=== PATIENT | male | born 1955 | race Caucasian/White ===

== ENCOUNTER 2016-06-08 19:21 | Observation (INO) | payer SELFPAY ==
[2016-06-08 19:29] VITALS: BMI 42.2
[2016-06-08] MEDS ORDERED: ASPIRIN 81 MG CHEWABLE TABLETS PO ONE (19:47)
--- NOTE | 2016-06-08 19:47 | PDOC ---
[id number] - General Chief Complaint: Syncope/Near Syncope Stated Complaint: SYNCOPE - History of Present Illness Initial Comments: 06/08/16 21:09 Patient is a 61 year old male with significant medical hx of COPD and HTN has been brought to the ED via EMS after a syncopal episode earlier this evening. The patient states he finished eating and had a sip of soda prior to losing consciousness. He reports that the next thing he knew, he was being woken up. Patient denies chest pain, headache, shortness of breath, or dizziness prior to losing consciousness. Social Hx: Pack a day smoker for 50 years. Denies alcohol use. Surgical Hx: Left forearm fx with plates Allergies: NKDA (Holden,Tiffanie) Past History <Tiffanie Hatch - Last Filed: 06/08/16 21:09> - Past Medical History COPD: Yes HTN: Yes (dx ) - Psycho/Social/Smoking Cessation Hx Suicidal Ideation: No Smoking History: Unknown if ever smoked <Jacinda Del Real - Last Filed: 06/09/16 00:26> - Past Medical History Allergies/Adverse Reactions: Allergies Allergy/AdvReac Type Severity Reaction Status Date / Time No Known Allergies Allergy Verified 06/08/16 19:25 Home Medications: Ambulatory Orders Nebivolol HCl [Bystolic] 10 mg PO DAILY 06/08/16 Review of Systems <Tiffanie Hatch - Last Filed: 06/08/16 21:09> <Jacinda Del Real - Last Filed: 06/09/16 00:26> - Review of Systems Comments:: 06/08/16 21:09 CONSTITUTIONAL: Absent: fever, chills, diaphoresis, generalized weakness, malaise, loss of appetite HEENT: Absent: rhinorrhea, nasal congestion, throat pain, throat swelling, difficulty swallowing, mouth swelling, ear pain, eye pain, visual changes CARDIOVASCULAR: Present: syncope Absent: chest pain, palpitations, irregular heart rate, lightheadedness, peripheral edema RESPIRATORY: Absent: cough, shortness of breath, dyspnea with exertion, orthopnea, wheezing, stridor, hemoptysis GASTROINTESTINAL: Absent: abdominal pain, abdominal distension, nausea, vomiting, diarrhea, constipation, melena, hematochezia GENITOURINARY: Absent: dysuria, frequency, urgency, hesitancy, hematuria, flank pain, genital pain MUSCULOSKELETAL: Absent: myalgia, arthralgia, joint swelling SKIN: Absent: rash, itching, pallor HEMATOLOGIC/IMMUNOLOGIC: Absent: easy bleeding, easy bruising, lymphadenopathy, frequent infections ENDOCRINE: Absent: unexplained weight gain, unexplained weight loss, heat intolerance, cold intolerance NEUROLOGIC: Absent: headache, focal weakness or paresthesia, dizziness, unsteady gait, seizure, mental status changes, bladder or bowel incontinence. PSYCHIATRIC: Absent: anxiety, depression, suicidal or homicidal ideation, hallucinations (Tiffanie Hatch) *Physical Exam <Tiffanie Hatch - Last Filed: 06/08/16 21:09> <Jacinda Del Real - Last Filed: 06/09/16 00:26> - Vital Signs Last Vital Signs Temp Pulse Resp BP Pulse Ox 98.5 F 64 20 178/69 93 L 06/08/16 22:37 06/08/16 22:37 06/08/16 22:37 06/08/16 22:37 06/08/16 22:37 - Physical Exam Comments: 06/08/16 21:09 GENERAL: Morbidly Obese. Awake and alert. No acute distress. HEENT: Normocephalic, atraumatic. PERRLA, EOMI. No conjunctival pallor. Sclera are non- icteric. Moist mucous membranes. Oropharynx is clear. NECK: Supple. Full ROM. No JVD. Carotid pulses 2+ and symmetric, without bruits. No thyromegaly. No lymphadenopathy. CARDIOVASCULAR: Irregular heart rate. No murmurs, rubs, or gallops. Distal pulses are 2+ and symmetric. PULMONARY: No evidence of respiratory distress. Lungs clear to auscultation bilaterally. No wheezing, rales or rhonchi. ABDOMINAL: Protuberant. Soft. Non-tender. Non-distended. No rebound or guarding. No organomegaly. Normoactive bowel sounds. MUSCULOSKELETAL: Normal range of motion at all joints. No bony deformities or tenderness. No CVA tenderness. EXTREMITIES: No cyanosis. No clubbing. No edema. No calf tenderness. SKIN: Warm and dry. Normal capillary refill. No rashes. No jaundice. NEUROLOGICAL: Alert, awake, appropriate. Cranial nerves 2-12 intact. Normal speech. PSYCHIATRIC: Cooperative. Good eye contact. Appropriate mood and affect. (Tiffanie Hatch) Heart Score/ECG Review <Tiffanie Hatch - Last Filed: 06/08/16 21:09> - History History: Slightly suspicious - Electrocardiogram EKG: Non specific repolarization disturbance - Age Age: 45-65 - Risk Factors Risk Factors Heart Score: Yes Hx Hypertension, Yes Smoking History, Yes Hx Obesity Based on the list above the patient has:: >/=3 risk factors or Hx atherosclerotic disease - Troponin Troponin: </= normal limit - Score Heart Score - Total: 4 #1 Compared to previous ECG there are: Previous ECG unavail - P and DE Prolonged DE Interval: 2nd Degree Block Type I (2rd degree AV block (mobitz I)) Delta Wave(s) Present: No WPW: No - ECG Impressions Heart Block: 2nd Degree Block Type I <Jacinda Del Real - Last Filed: 06/09/16 00:26> #1 06/08/16 21:11 Sinus rhythm with 2nd degree AV block (Mobitz I) at 56 bpm Abnormal ECG (Tiffanie Hatch) ED Treatment Course - LABORATORY CBC & Chemistry Diagram: 06/08/16 19:56 06/08/16 19:56 <HoldenLeonelTiffanie - Last Filed: 06/08/16 21:09> - LABORATORY CBC & Chemistry Diagram: 06/08/16 19:56 06/08/16 19:56 <Jacinda Del Real - Last Filed: 06/09/16 00:26> - ADDITIONAL ORDERS Additional order review: Laboratory Results 06/08/16 06/08/16 06/08/16 20:00 19:56 19:56 INR D-Dimer Sodium 140 Potassium 4.1 Chloride 103 Carbon Dioxide 29 Anion Gap 8 BUN 15 Creatinine 1.1 Creat Clearance w eGFR > 60 Random Glucose 93 Calcium 8.7 Magnesium 2.0 Total Bilirubin 0.5 AST 22 ALT 30 Alkaline Phosphatase 82 Creatine Kinase 161 Creatine Kinase Index 1.4 CK-MB (CK-2) 2.307 CK-MB (CK-2) Rel Index Cancelled Troponin I < 0.02 B-Natriuretic Peptide 654.87 H Total Protein 7.6 Albumin 3.8 Urine Color Yellow Urine Appearance Clear Urine pH 6.0 Ur Specific [place] 1.021 Urine Protein 1+ H Urine Glucose (UA) Negative Urine Ketones Negative Urine Blood Negative Urine Nitrite Negative Urine Bilirubin Negative Urine Urobilinogen 4.0 e.u/dl Ur Leukocyte Esterase Negative Urine RBC 2 Urine WBC <1 Urine Mucus Rare 06/08/16 19:56 INR 1.04 D-Dimer < 200 Sodium Potassium Chloride Carbon Dioxide Anion Gap BUN Creatinine Creat Clearance w eGFR Random Glucose Calcium Magnesium Total Bilirubin AST ALT Alkaline Phosphatase Creatine Kinase Creatine Kinase Index CK-MB (CK-2) CK-MB (CK-2) Rel Index Troponin I B-Natriuretic Peptide Total Protein Albumin Urine Color Urine Appearance Urine pH Ur Specific [place] Urine Protein Urine Glucose (UA) Urine Ketones Urine Blood Urine Nitrite Urine Bilirubin Urine Urobilinogen Ur Leukocyte Esterase Urine RBC Urine WBC Urine Mucus 06/08/16 19:56 RBC 5.61 H MCV 88.1 MCHC 33.3 RDW 14.2 MPV 10.6 Neutrophils % 52.6 Lymphocytes % 36.3 Monocytes % 8.7 Eosinophils % 1.8 Basophils % 0.6 - RADIOLOGY Radiology Studies Ordered: Category Date Time Status HEAD CT WITHOUT CONTRAST [CT] Stat CT Scan 06/08/16 20:03 Taken CHEST PA & LAT [RAD] Stat Radiology 06/08/16 19:48 Taken Radiograph Interpretation: 06/08/16 21:11 Economic Research Analyst: ([email or web address]) Report Date: 06/08/2016 20:34:00 Report Status: Preliminary Begin of Report Content Referring Physician: Jacinda Del Real Patient Name: Marco Combs THIS IS A PRELIMINARY REPORT FROM IMAGING MANAGER APPLICATION DEVELOPMENT. EXAM: HEAD CT WITHOUT CONTRAST DATE OF SERVICE: 2016-06-08 20:34:58.0 IMAGES: 74 INDICATION: Syncope. COMPARISON: None FINDINGS: No evidence of acute intracranial abnormality demonstrated. Mild diffuse cerebral volume loss. There is no CT evidence of acute cortical territorial infarction, bleed, mass lesion, mass effect, hydrocephalus or abnormal extraaxial collection. No acute sinusitis or mastoiditis is identified. No acute skull fracture or calvarial lesion is noted. THIS DOCUMENT HAS BEEN ELECTRONICALLY SIGNED Sherie Garcia MD 06/08/2016 21:01 MARY Mcintyre Please call Imaging Medicine And Health Service Manager [phone] with questions. End of Report Content (Tiffanie Hatch) - Medications Given in the ED: ED Medications Discontinued Medications Generic Name Dose Route Start Last Admin Trade Name Alex PRN Reason Stop Dose Admin Aspirin 162 mg 06/08/16 19:47 06/08/16 19:54 Asa - PO 06/08/16 19:48 162 mg ONCE ONE Administration Medical Decision Making <Tiffanie Hatch - Last Filed: 06/08/16 21:09> <Jacinda Del Real - Last Filed: 06/09/16 00:26> - Medical Decision Making 06/08/16 21:47 obese 61 yo male had a witnessed syncopal episode today and was BIBA ekg shows 2rd degree AV block(mobitz I). pt was just started on bystolic last by his doctor Dr Humphreys -no gross focal neuro deficits, ct head no acute intracranial pathology risk factors >50 pack year tobacco use/obesity/HTN first cardiac enzyme is negative pt denies any symptoms-states he has NO cp,dyspnea,nausea,vomiting,dizziness -spoke w furnace stock inspector Dr Sims and pt admitted to telemetry 06/09/16 00:20 06/09/16 00:25 (Jacinda Del Real) *DC/Admit/Observation/Transfer <Tiffanie Hatch - Last Filed: 06/08/16 21:09> - Discharge Dispostion Admit: Yes <Jacinda Del Real - Last Filed: 06/09/16 00:26> Diagnosis at time of Disposition: Second degree AV block Syncope Qualifiers: Syncope type: unspecified Qualified Code(s): R55 - Syncope and collapse - Attestations Scribe Attestion: 06/08/16 21:13 Documentation prepared by Tiffanie Hatch, acting as biomedical engineering internship for Jacinda Del Real MD. (Tiffanie Hatch)
[2016-06-08] MEDS ORDERED: ASPIRIN 81 MG CHEWABLE TABLETS ONE (19:56)
[2016-06-08 20:03] LABS: BASOPHIL 0.6 % (0-2.0); EOSINOPHIL 1.8 % (0-4.5); MCH 29.3 pg (25.7-33.7); MCHC 33.3 g/dl (32.0-35.9); MEAN CELL VOLUME 88.1 fl (80-96); MEAN PLT VOLUME 10.6 fl (7.5-11.1); NEUTROPHILS 52.6 % (42.8-82.8); PLATELET COUNT 196 K/MM3 (134-434); RDW 14.2 % (11.9-15.9)
[2016-06-08 20:09] LABS: URINE APPEARANCE CLEAR; URINE BILIRUBIN NEGATIVE (NEGATIVE); URINE BLOOD NEGATIVE (NEGATIVE); URINE COLOR YELLOW; URINE GLUCOSE (UA) NEGATIVE (NEGATIVE); URINE KETONE NEGATIVE (NEGATIVE); URINE LEUK ESTERASE NEGATIVE (NEGATIVE); URINE NITRITE NEGATIVE (NEGATIVE); URINE UROBILINOGEN 4.0 E.U/dl E.U./dl (0.2-1.0)
[2016-06-08 20:12] LABS: URINE PROTEIN 1+ (NEGATIVE)
[2016-06-08 20:13] LABS: URINE MUCUS RARE; URINE RBC 2 /hpf (0-3); URINE WBC <1 /hpf (3-5)
[2016-06-08 20:24] LABS: ALBUMIN 3.8 g/dl (3.4-5.0); ANION GAP 8 (8-16); BILIRUBIN,TOTAL 0.5 mg/dL (0.2-1.0); CALCIUM 8.7 mg/dL (8.5-10.1); CO2 29 mmol/L (21-32); CREATININE 1.1 mg/dL (0.7-1.3); GLUCOSE,RANDOM 93 mg/dL (74-106); SGOT/AST 22 U/L (15-37); SGPT/ALT 30 U/L (12-78); TOT PROT 7.6 g/dl (6.4-8.2)
[2016-06-08 20:26] LABS: ALK PHOS 82 U/L (45-117); TROPONIN I < 0.02 ng/ml (0.00-0.05)
[2016-06-08 21:00] LABS: INR 1.04 (0.82-1.09)
[2016-06-08 21:02] LABS: D-DIMER < 200 ng/ml (<200-235)
--- NOTE | 2016-06-08 22:00 | PN ---
<Jennifer Parry - Last Filed: 06/08/16 22:00> Teaching Attending Note Name of Resident: Josiah Schwab ATTENDING PHYSICIAN STATEMENT I saw and evaluated the patient. I reviewed the resident's note and discussed the case with the resident. I agree with the resident's findings and plan as documented. SUBJECTIVE: OBJECTIVE: ASSESSMENT AND PLAN: <Taty Vickers - Last Filed: 06/09/16 01:31> Teaching Attending Note ATTENDING PHYSICIAN STATEMENT I saw and evaluated the patient. I reviewed the resident's note and discussed the case with the resident. I agree with the resident's findings and plan as documented. SUBJECTIVE: Patient is a 61 yo M with a PMHx of COPD and HTN who presented with LOC earlier in the evening. Patients daughter states he had just finished dinner and sat on the couch and got rigid and fell back onto the couch for 20 seconds. Patient denies loss of bowel or bladder function. Patient notes he has had dizzy spells in the past. Patients states that patient has been stressed and has been eating less recently. Patient was recently diagnosed with HTN and started bystolic 3 days ago. Social Hx: Smoker (50 years) OBJECTIVE: Last Vital Signs Temp Pulse Resp BP Pulse Ox 98.5 F 64 20 178/69 93 L 06/08/16 22:37 06/08/16 22:37 06/08/16 22:37 06/08/16 22:37 06/08/16 22:37 GENERAL: Awake, alert, and fully oriented, in no acute distress. Morbidly obese. HEENT: Atraumatic. PERRLA, EOMI. Moist mucosa. No JVD LUNGS: No distress, speaks full sentences, clear to auscultation bilaterally HEART: Regular rate and rhythm, normal S1 and S2, no murmurs, rubs or gallops, peripheral pulses normal and equal bilaterally. ABDOMEN: Soft, nontender, normoactive bowel sounds. No guarding, no rebound. No masses EXTREMITIES: Normal inspection, Normal range of motion, +1 pitting edema in bilateral LE. No clubbing or cyanosis. NEUROLOGICAL: Cranial nerves II through XII grossly intact. Normal speech, normal gait, no focal sensorimotor deficits SKIN: Warm, Dry, normal turgor, no rashes or lesions noted. CBCD WBC 12.0 K/mm3 (4.0-10.0) H 06/08/16 19:56 RBC 5.61 M/mm3 (4.00-5.60) H 06/08/16 19:56 Hgb 16.4 GM/dL (11.7-16.9) 06/08/16 19:56 Hct 49.4 % (35.4-49) H 06/08/16 19:56 MCV 88.1 fl (80-96) 06/08/16 19:56 MCHC 33.3 g/dl (32.0-35.9) 06/08/16 19:56 RDW 14.2 % (11.9-15.9) 06/08/16 19:56 Plt Count 196 K/MM3 (134-434) 06/08/16 19:56 MPV 10.6 fl (7.5-11.1) 06/08/16 19:56 CMP Sodium 140 mmol/L (136-145) 06/08/16 19:56 Potassium 4.1 mmol/L (3.5-5.1) 06/08/16 19:56 Chloride 103 mmol/L (98-107) 06/08/16 19:56 Carbon Dioxide 29 mmol/L (21-32) 06/08/16 19:56 Anion Gap 8 (8-16) 06/08/16 19:56 BUN 15 mg/dL (7-18) 06/08/16 19:56 Creatinine 1.1 mg/dL (0.7-1.3) 06/08/16 19:56 Creat Clearance w eGFR > 60 (>60) 06/08/16 19:56 Calcium 8.7 mg/dL (8.5-10.1) 06/08/16 19:56 Total Bilirubin 0.5 mg/dL (0.2-1.0) 06/08/16 19:56 AST 22 U/L (15-37) 06/08/16 19:56 ALT 30 U/L (12-78) 06/08/16 19:56 Alkaline Phosphatase 82 U/L (45-117) 06/08/16 19:56 Total Protein 7.6 g/dl (6.4-8.2) 06/08/16 19:56 Albumin 3.8 g/dl (3.4-5.0) 06/08/16 19:56 ECG: Consistent with mobitz 1 @ [address] head: Negative for any acute abnormality. Carotid Artery US: Left carotid plaque less than 70% Decreased left vertebral artery flow ASSESSMENT AND PLAN: Patient is a 61 yo M with a PMHx of COPD and HTN who presents with LOC. 1.) LOC -Differential diagnosis vasovagal/cardiogenic -Vertebrobasilar insufficiency -Consider MRA -Check lipid panel -Trend troponin/ECG -Orthostatic VS -Echo in AM -Carotid US -DC bystolic due to mobitz 1 -Cardiology consult 2.) HTN -Amlodipine 3.) COPD -Duonabs PRN -Continue Dulera DVT ppx -SCDs Admit to Obs/Tele Documentation prepared by Taty Vickers, acting as medical psychotherapist for Jennifer Parry D.O.
[2016-06-08] MEDS ORDERED: ALBUTEROL SO4 0.083% IH SOL 2.5 MG/3 ML VIAL.NEB. NEB PRN (22:47)
[2016-06-08] MEDS ORDERED: ACETAMINOPHEN 325 MG TABLET (FP) PO PRN (22:47)
--- NOTE | 2016-06-08 22:47 | HP ---
CHIEF COMPLAINT:Syncope PCP: HISTORY OF PRESENT ILLNESS: 61 yo M with significant PMHx of COPD and HTN has been brought to the ED via EMS after a syncopal episode earlier this evening. As per daughter who witnessed event she states that he was sitting on couch just after dinner when she witnessed him fall back in cough and lose consciousness for approx. 20 sec. Denies confusion, loss of bowel or bladder function upon regaining consciousness. ER course was notable for: (1)EKG- Sinus rhythm with 2nd degree AV block (Mobitz I) at 56 bpm (2)BNP elevated- 654 and CXR shows mild congestion; stat dose 20mg IV lasix (3)First set of troponin's negative. Recent Travel:Denies PAST MEDICAL HISTORY:COPD and HTN PAST SURGICAL HISTORY: Social History: Smokin pack year history Alcohol:no Drugs: no Family History: Allergies No Known Allergies Allergy (Verified 06/08/16 19:25) HOME MEDICATIONS: Home Medications Medication Instructions Recorded Nebivolol HCl [Bystolic] 10 mg PO DAILY 06/08/16 REVIEW OF SYSTEMS CONSTITUTIONAL: Absent: fever, chills, diaphoresis, generalized weakness, malaise, loss of appetite, weight change HEENT: Absent: rhinorrhea, nasal congestion, throat pain, throat swelling, difficulty swallowing, mouth swelling, ear pain, eye pain, visual changes CARDIOVASCULAR: Absent: chest pain, syncope, palpitations, irregular heart rate, lightheadedness , peripheral edema RESPIRATORY: Absent: cough, shortness of breath, dyspnea with exertion, orthopnea, wheezing, stridor, hemoptysis GASTROINTESTINAL: Absent: abdominal pain, abdominal distension, nausea, vomiting, diarrhea, constipation, melena, hematochezia GENITOURINARY: Absent: dysuria, frequency, urgency, hesitancy, hematuria, flank pain, genital pain MUSCULOSKELETAL: Absent: myalgia, arthralgia, joint swelling, back pain, neck pain SKIN: Absent: rash, itching, pallor HEMATOLOGIC/IMMUNOLOGIC: Absent: easy bleeding, easy bruising, lymphadenopathy, frequent infections ENDOCRINE: Absent: unexplained weight gain, unexplained weight loss, heat intolerance, cold intolerance NEUROLOGIC: Absent: headache, focal weakness or paresthesias, dizziness, unsteady gait, seizure, mental status changes, bladder or bowel incontinence PSYCHIATRIC: Absent: anxiety, depression, suicidal or homicidal ideation, hallucinations. PHYSICAL EXAMINATION Vital Signs - 24 hr 06/08/16 22:37 Temperature 98.5 F Pulse Rate [ 64 Apical] Respiratory 20 Rate Blood Pressure 178/69 [Right Arm] O2 Sat by Pulse 93 L Oximetry (%) GENERAL: Awake, alert, and fully oriented, in no acute distress. HEAD: Normal with no signs of trauma. EYES: Pupils equal, round and reactive to light, extraocular movements intact, sclera anicteric, conjunctiva clear. EARS, NOSE, THROAT: Ears normal, nares patent, oropharynx clear without exudates. Moist mucous membranes. NECK: Normal range of motion, supple without lymphadenopathy, JVD, or masses.No bruits LUNGS: Breath sounds equal, clear to auscultation bilaterally. No wheezes, and no crackles. No accessory muscle use. HEART: Regular rate and rhythm, normal S1 and S2 without murmur, rub or gallop. ABDOMEN: Soft, obese, nontender, not distended, normoactive bowel sounds, no guarding, no rebound, no masses. No hepatomegaly or splenomegaly. MUSCULOSKELETAL: Normal range of motion at all joints. No bony deformities or tenderness. No CVA tenderness. UPPER EXTREMITIES: 2+ pulses, warm, well-perfused. No cyanosis. No clubbing.. No peripheral edema. LOWER EXTREMITIES: 2+ pulses, warm, well-perfused. No calf tenderness. No peripheral edema. NEUROLOGICAL: Cranial nerves II-XII intact. Normal speech. gait not observed. PSYCHIATRIC: Cooperative. Good eye contact. Appropriate mood and affect. SKIN: Warm, dry, normal turgor, LE stasis dermatitis. ASSESSMENT/PLAN: 61 yo M with significant PMHx of COPD and HTN placed on tele/observation for syncopal work up. Problem List - Problem (1) Syncope Assessment/Plan: * Telemetry * Echo pending * Carotid dopplers * Cardio consult * (2) Second degree AV block Assessment/Plan: * Bystolic held * repeat EKG * tele * Cardio consult. * daughter states she can fax old EKG in AM to compare. (3) HTN (hypertension) Assessment/Plan: * Bystolic held because of 2 degree block on EKG * Started on HCTZ 12.5mg PO daily (4) COPD (chronic obstructive pulmonary disease) Assessment/Plan: * Supplemental O2 via 2L NC * maintain SpO2 >90% * Duonebs TID * Albuterol Q4PRN (5) DVT prophylaxis Assessment/Plan: * Heparin 5000 units TID Visit type - Emergency Visit Emergency Visit: Yes ED Registration Date: 06/08/16 Care time: The patient presented to the Emergency Department on the above date and was hospitalized for further evaluation of their emergent condition. - New Patient This patient is new to me today: Yes Date on this admission: 06/08/16 - Critical Care Critical Care patient: No
[2016-06-08] MEDS ORDERED: FUROSEMIDE 40 MG/4 ML INJECTABLE VIAL IVPB ONE (22:55)
[2016-06-09] MEDS: HEPARIN NA (PORCINE) 5,000 UNITS/ML 1ML VIAL SQ SCH ×4 (00:20→21:18)
[2016-06-09] MEDS: ALBUTEROL SO4 2.5/IPRATROPIUM 0.5 INH SOL 3 ML VIAL.NEB. NEB SCH ×3 (06:30→22:15)
[2016-06-09 07:38] LABS: BASOPHIL 0.7 % (0-2.0); EOSINOPHIL 2.1 % (0-4.5); MCH 29.3 pg (25.7-33.7); MEAN CELL VOLUME 88.5 fl (80-96); MEAN PLT VOLUME 10.4 fl (7.5-11.1); NEUTROPHILS 60.1 % (42.8-82.8); PLATELET COUNT 156 K/MM3 (134-434); RDW 14.2 % (11.9-15.9); WHITE BLOOD COUNT 9.6 K/mm3 (4.0-10.0)
[2016-06-09 07:44] LABS: ALBUMIN 3.5 g/dl (3.4-5.0); ANION GAP 10 (8-16); CALCIUM 8.5 mg/dL (8.5-10.1); CO2 27 mmol/L (21-32); GLUCOSE,RANDOM 100 mg/dL (74-106); MAGNESIUM 2.1 mg/dL (1.8-2.4); PHOSPHOROUS 3.1 mg/dL (2.5-4.9); SGOT/AST 18 U/L (15-37); SGPT/ALT 27 U/L (12-78)
[2016-06-09 07:45] LABS: ALK PHOS 72 U/L (45-117); BILIRUBIN,TOTAL 0.7 mg/dL (0.2-1.0); TOT PROT 6.9 g/dl (6.4-8.2)
[2016-06-09 08:41] LABS: CHOLESTEROL 194 mg/dL (50-200); LDL CHOLESTEROL (ONLY SJRH) 144 mg/dL (5-100)
[2016-06-09 08:43] LABS: TROPONIN I 0.02 ng/ml (0.00-0.05)
[2016-06-09] MEDS ORDERED: HYDROCHLOROTHIAZIDE 12.5 MG CAPSULE (FP) PO SCH (10:00)
[2016-06-09] MEDS ORDERED: INFLUENZA VACCINE 45 MCG/0.5 ML (MDV 16-17) IM ONE (10:00)
--- NOTE | 2016-06-09 11:44 | PN ---
Addendum entered and electronically signed by Ozzy Loja RES 06/09/16 16:51 : Will stop HCTZ and start pt on norvasc 5 mg po qd for HTN. Original Note: Physical Exam: SUBJECTIVE: Patient seen and examined at bedside. Pt offers no complaints today. Feels well and denies any CP, palpitations, light headedness, dizziness, SOB, or feeling faint. Pt states he was recently diagnosed with HTN and was started on bystolic 3 days ago. OBJECTIVE: Vital Signs Temperature 98.2 F 06/09/16 09:00 Pulse Rate 54 L 06/09/16 09:00 Respiratory Rate 16 06/09/16 09:00 Blood Pressure 148/70 06/09/16 09:00 O2 Sat by Pulse Oximetry (%) 94 L 06/09/16 11:00 GENERAL: The patient is awake, alert, and fully oriented, in no acute distress. HEAD: Normal with no signs of trauma. EYES: PERRL, extraocular movements intact, sclera anicteric, conjunctiva clear. No ptosis. ENT: Ears normal, nares patent, moist mucous membranes. NECK: Trachea midline, full range of motion LUNGS: Breath sounds equal, clear to auscultation bilaterally, no wheezes, no crackles, no accessory muscle use. HEART: Bradycardic, S1, S2 without murmur, rub or gallop. ABDOMEN: Soft, obese, nontender, nondistended, normoactive bowel sounds, no guarding, no rebound, no hepatosplenomegaly, no masses. EXTREMITIES: 2+ pulses, warm, well-perfused, no edema. NEUROLOGICAL:Normal speech, gait not observed. PSYCH: Normal mood, normal affect. SKIN: Warm, dry, normal turgor, no rashes or lesions noted Laboratory Results - last 24 hr 06/09/16 06/09/16 06/09/16 01:00 05:35 05:35 WBC 9.6 RBC 5.39 Hgb 15.8 Hct 47.7 MCV 88.5 MCHC 33.0 RDW 14.2 Plt Count 156 D MPV 10.4 Neutrophils % 60.1 Lymphocytes % 27.4 D Monocytes % 9.7 Eosinophils % 2.1 Basophils % 0.7 Sodium 141 Potassium 4.1 Chloride 104 Carbon Dioxide 27 Anion Gap 10 BUN 17 Creatinine 1.0 Creat Clearance w eGFR > 60 Random Glucose 100 Calcium 8.5 Phosphorus 3.1 Magnesium 2.1 Total Bilirubin 0.7 D AST 18 ALT 27 Alkaline Phosphatase 72 Troponin I 0.02 0.02 Total Protein 6.9 Albumin 3.5 Triglycerides 132 Cholesterol 194 Total LDL Cholesterol 144 H HDL Cholesterol 41 06/09/16 06/09/16 05:35 06:15 WBC RBC Hgb Hct MCV MCHC RDW Plt Count MPV Neutrophils % Lymphocytes % Monocytes % Eosinophils % Basophils % Sodium Potassium Chloride Carbon Dioxide Anion Gap BUN Creatinine Creat Clearance w eGFR Random Glucose Calcium Phosphorus Magnesium Total Bilirubin AST ALT Alkaline Phosphatase Troponin I Cancelled Total Protein Albumin Triglycerides Cancelled Cholesterol Cancelled Total LDL Cholesterol Cancelled HDL Cholesterol Cancelled Imaging -Head CT - negative for acute pathology -Carotid Doppler Study - 60-79% stenosis at left carotid bifurcation. Possible occlusion of L vertebral artery. CTA or MRA recommended by radiology. -CXR: no acute pathology -Echo: pending read Active Medications Generic Name Dose Route Start Last Admin Trade Name Freq PRN Reason Stop Dose Admin Acetaminophen 650 mg 06/08/16 22:47 Tylenol - PO Q4H PRN FEVER OR PAIN Albuterol Sulfate 1 amp 06/08/16 22:47 Ventolin 0.083% Nebulizer Soln - NEB Q4H PRN SHORT OF BREATH/WHEEZING Albuterol/Ipratropium 1 amp 06/09/16 06:00 06/09/16 06:30 Duoneb - NEB 1 amp TIDR CRISSY Administration Heparin Sodium (Porcine) 5,000 unit 06/09/16 02:00 06/09/16 09:35 Heparin - SQ 5,000 unit Q8H-IV CRISSY Administration Hydrochlorothiazide 12.5 mg 06/09/16 10:00 06/09/16 09:35 Hctz - PO 12.5 mg DAILY CRISSY Administration ASSESSMENT/PLAN: 61 y/o M w/ PMH of COPD, recently diagnosed HTN (started on bystolic 3 days ago ) presented to ER after LOC for approximately 20 seconds. EKG showed Mobitz type 1 heart block. In obs for syncopal event. -Syncope secondary to heart block worsened by medication/beta helen vs vascular disease -Bystolic held -EKG shows Mobitz type 1 heart block -Head CT - negative for acute pathology -Carotid Doppler Study - 60-79% stenosis at left carotid bifurcation. Possible occlusion of L vertebral artery. CTA or MRA recommended by radiology. -f/u Echo, done this AM -f/u TSH, lyme -Cardiology consulted -Mobitz type 1 heart block -as seen on EKG -f/u echo -cardiology consulted -f/u TSH, lyme -HTN -bystolic held -on hctz 12.5 mg po qd currently -COPD -c/w duonebs TID, alb neb q4h PRN -FEN -Sodium controlled diet -DVT ppx -Heparin TID -Dispo -Pending echo, will discharge soon most likely Problem List - Problems (1) COPD (chronic obstructive pulmonary disease) Code(s): J44.9 - CHRONIC OBSTRUCTIVE PULMONARY DISEASE, UNSPECIFIED Qualifiers : COPD type: unspecified COPD Qualified Code(s): J44.9 - Chronic obstructive pulmonary disease, unspecified (2) DVT prophylaxis Code(s): MYA6384 - (3) HTN (hypertension) Code(s): I10 - ESSENTIAL (PRIMARY) HYPERTENSION Qualifiers: Hypertension type: essential hypertension Qualified Code(s): I10 - Essential (primary) hypertension (4) Second degree AV block Code(s): I44.1 - ATRIOVENTRICULAR BLOCK, SECOND DEGREE (5) Syncope Code(s): R55 - SYNCOPE AND COLLAPSE Qualifiers: Syncope type: unspecified Qualified Code(s): R55 - Syncope and collapse Visit type - Emergency Visit Emergency Visit: Yes ED Registration Date: 06/08/16 Care time: The patient presented to the Emergency Department on the above date and was hospitalized for further evaluation of their emergent condition. - New Patient This patient is new to me today: Yes Date on this admission: 06/09/16 - Critical Care Critical Care patient: No
--- NOTE | 2016-06-09 12:36 | CON.CARD ---
Consult Consult Specialty:: Cardiology Referred by:: Hospitalist Reason for Consultation:: Cardiac evaluation - History of Present Illness Chief Complaint: Syncope History of Present Illness: Patient is a 61 year old male with exogenous obesity, HTN and COPD who presents to [facility] after what appears to be a syncopal episode. This happened after dinner as he had hard time swallowing. He has not had syncopal episodes in the past. He denies chest pain, shortness of breath or palpitations. He denies paroxysmal nocturnal dyspnea or orthopnea. He denies fever or chills. He denies headache or lightheadedness. ECG demonstrates secondary AV block with Mobitz I (Wenchebach) and then there is also strip that suggests 2:1 AV block and Mobitz 2 secondary AV block. He remains asymptomatic at this time. Cardiology consultation was called for further evaluation. - History Source History Provided By: Patient, Medical Record Limitations to Obtaining History: No Limitations - Past Medical History Cardio/Vascular: Yes: HTN Pulmonary: Yes: COPD - Alcohol/Substance Use Hx Alcohol Use: No - Smoking History Smoking history: Current every day smoker Have you smoked in the past 12 months: Yes Aproximately how many cigarettes per day: 20 Home Medications - Allergies Allergies/Adverse Reactions: Allergies Allergy/AdvReac Type Severity Reaction Status Date / Time No Known Allergies Allergy Verified 06/08/16 19:25 - Home Medications Home Medications: Ambulatory Orders Nebivolol HCl [Bystolic] 10 mg PO DAILY 06/08/16 Review of Systems - Review of Systems Constitutional: denies: Chills, Fever Cardiovascular: denies: Chest Pain, Palpitations, Shortness of Breath Respiratory: denies: Cough, Hemoptysis, Orthopnea, PND, SOB, SOB on Exertion Gastrointestinal: denies: Abdominal Pain, Constipation, Diarrhea, Melena, Nausea , Rectal Bleeding, Vomiting Genitourinary: denies: Dysuria Neurological: reports: Syncope. denies: Dizziness, Headache, Seizure, Tremors, Unsteady Gait Vital Signs: Vital Signs Temperature 98.2 F 06/09/16 09:00 Pulse Rate 54 L 06/09/16 09:00 Respiratory Rate 16 06/09/16 09:00 Blood Pressure 148/70 06/09/16 09:00 O2 Sat by Pulse Oximetry (%) 93 L 06/09/16 03:45 Neck: Yes: Supple Respiratory: Yes: Regular, CTA Bilaterally Gastrointestinal: Yes: Normal Bowel Sounds, Soft, Abdomen, Obese. No: Tenderness Cardiovascular: Yes: Regular Rate and Rhythm JVD: No Carotid Bruit: No PMI: Non-Displaced Heart Sounds: Yes: S1, S2 Edema: No - Other Data Labs, Other Data: CBC, BMP 06/09/16 05:35 06/09/16 05:35 INR, PTT INR 1.04 (0.82-1.09) 06/08/16 19:56 Troponin, BNP 06/09/16 06/09/16 06/09/16 01:00 05:35 06:15 Troponin I 0.02 0.02 Cancelled Laboratory Results - last 24 hr 06/08/16 06/08/16 06/08/16 19:56 19:56 19:56 WBC 12.0 H RBC 5.61 H Hgb 16.4 Hct 49.4 H MCV 88.1 MCHC 33.3 RDW 14.2 Plt Count 196 MPV 10.6 Neutrophils % 52.6 Lymphocytes % 36.3 Monocytes % 8.7 Eosinophils % 1.8 Basophils % 0.6 INR 1.04 D-Dimer < 200 Sodium 140 Potassium 4.1 Chloride 103 Carbon Dioxide 29 Anion Gap 8 BUN 15 Creatinine 1.1 Creat Clearance w eGFR > 60 Random Glucose 93 Calcium 8.7 Phosphorus Magnesium 2.0 Total Bilirubin 0.5 AST 22 ALT 30 Alkaline Phosphatase 82 Creatine Kinase 161 Creatine Kinase Index 1.4 CK-MB (CK-2) 2.307 CK-MB (CK-2) Rel Index Troponin I < 0.02 B-Natriuretic Peptide 654.87 H Total Protein 7.6 Albumin 3.8 Triglycerides Cholesterol Total LDL Cholesterol HDL Cholesterol Urine Color Urine Appearance Urine pH Ur Specific Logan Urine Protein Urine Glucose (UA) Urine Ketones Urine Blood Urine Nitrite Urine Bilirubin Urine Urobilinogen Ur Leukocyte Esterase Urine RBC Urine WBC Urine Mucus 06/08/16 06/08/16 06/09/16 19:56 20:00 01:00 WBC RBC Hgb Hct MCV MCHC RDW Plt Count MPV Neutrophils % Lymphocytes % Monocytes % Eosinophils % Basophils % INR D-Dimer Sodium Potassium Chloride Carbon Dioxide Anion Gap BUN Creatinine Creat Clearance w eGFR Random Glucose Calcium Phosphorus Magnesium Total Bilirubin AST ALT Alkaline Phosphatase Creatine Kinase Creatine Kinase Index CK-MB (CK-2) CK-MB (CK-2) Rel Index Cancelled Troponin I 0.02 B-Natriuretic Peptide Total Protein Albumin Triglycerides Cholesterol Total LDL Cholesterol HDL Cholesterol Urine Color Yellow Urine Appearance Clear Urine pH 6.0 Ur Specific Logan 1.021 Urine Protein 1+ H Urine Glucose (UA) Negative Urine Ketones Negative Urine Blood Negative Urine Nitrite Negative Urine Bilirubin Negative Urine Urobilinogen 4.0 e.u/dl Ur Leukocyte Esterase Negative Urine RBC 2 Urine WBC <1 Urine Mucus Rare 06/09/16 06/09/16 06/09/16 05:35 05:35 05:35 WBC 9.6 RBC 5.39 Hgb 15.8 Hct 47.7 MCV 88.5 MCHC 33.0 RDW 14.2 Plt Count 156 D MPV 10.4 Neutrophils % 60.1 Lymphocytes % 27.4 D Monocytes % 9.7 Eosinophils % 2.1 Basophils % 0.7 INR D-Dimer Sodium 141 Potassium 4.1 Chloride 104 Carbon Dioxide 27 Anion Gap 10 BUN 17 Creatinine 1.0 Creat Clearance w eGFR > 60 Random Glucose 100 Calcium 8.5 Phosphorus 3.1 Magnesium 2.1 Total Bilirubin 0.7 D AST 18 ALT 27 Alkaline Phosphatase 72 Creatine Kinase Creatine Kinase Index CK-MB (CK-2) CK-MB (CK-2) Rel Index Troponin I 0.02 B-Natriuretic Peptide Total Protein 6.9 Albumin 3.5 Triglycerides 132 Cancelled Cholesterol 194 Cancelled Total LDL Cholesterol 144 H Cancelled HDL Cholesterol 41 Cancelled Urine Color Urine Appearance Urine pH Ur Specific Logan Urine Protein Urine Glucose (UA) Urine Ketones Urine Blood Urine Nitrite Urine Bilirubin Urine Urobilinogen Ur Leukocyte Esterase Urine RBC Urine WBC Urine Mucus Sinus rhythm with secondary AV block Mobitz 1 (Wenchebach) Rhythm strip suggests possible 2:1 AV block and periods of Mobitz 2 secondary AV block Echo: Report Reviewed Imaging - Results Chest X-ray: Report Reviewed (Unremarkable) Cat Scan: Report Reviewed (Head CT unremarkable) Ultrasound: Report Reviewed (Carotid Doppler 60-79% LICA and occluded right vertebral artery) EKG: Report Reviewed Problem List - Problems (1) COPD (chronic obstructive pulmonary disease) Code(s): J44.9 - CHRONIC OBSTRUCTIVE PULMONARY DISEASE, UNSPECIFIED Qualifiers : COPD type: unspecified COPD Qualified Code(s): J44.9 - Chronic obstructive pulmonary disease, unspecified (2) HTN (hypertension) Code(s): I10 - ESSENTIAL (PRIMARY) HYPERTENSION Qualifiers: Hypertension type: essential hypertension Qualified Code(s): I10 - Essential (primary) hypertension (3) Second degree AV block Code(s): I44.1 - ATRIOVENTRICULAR BLOCK, SECOND DEGREE (4) Syncope Code(s): R55 - SYNCOPE AND COLLAPSE Qualifiers: Syncope type: unspecified Qualified Code(s): R55 - Syncope and collapse Assessment/Plan 1. Syncope, etiology to be determined, findings of possible advanced AV block (2 :1 AV block and Mobitz 2 secondary AV block) 2. HTN 3. COPD 4. Carotid artery disease PLAN: 1. Discontinue Bystolic 2. Continue telemetry monitoring 3. Consider nuclear treadmill stress testing to rule out CAD, but also to check for chronotropic incompetence 4. Patient may need EP study if clinically indicated to check if block is above the His bundle or below the His bundle and to determine whether he would need a permanent pacemaker. If patient is symptomatic, would proceed with permanent pacemaker. 5. Continue Amlodipine 6. Consider ASA unless contraindicated 7. Check Lyme titre Further plans are to follow Kirill Patricia MD
--- NOTE | 2016-06-09 15:48 | PN ---
Teaching Attending Note Name of Resident: Ozzy Loja ATTENDING PHYSICIAN STATEMENT I saw and evaluated the patient. I reviewed the resident's note and discussed the case with the resident. I agree with the resident's findings and plan as documented. SUBJECTIVE:no recurrent episodes since being admitted. states he does not recall anything prior to or after him passing out. he states it was witnessed and was only out for several seconds. pt was started on bystolic 3 days earlier. denies any other medication use, OTC or herbal. denies CP, SOB,fever, chills, N/V/C/D OBJECTIVE: Last Vital Signs Temp Pulse Resp BP Pulse Ox 98 F 65 18 151/77 94 L 06/09/16 14:40 06/09/16 14:40 06/09/16 14:40 06/09/16 14:40 06/09/16 11:00 General NAD CV S1 S2 RRR no murmur/rub/gallop no carotid bruit Lungs CTA B/L no wheezing/rales/rhonchi extremities no pedal edema ASSESSMENT AND PLAN: 61yo M with PMH COPD and newly diagnosed HTN presented to the ER and was admitted for further evaluation of their emergent condition 1. Syncope- possible due to av node block. on EKG appears to be mobitz type 1 but on the monitor concerning for type 2. cardiac markers neg x3. echo pending. but will likely require stress test to r/o ischemia. perhaps enhanced with beta helen. carotid doppler with moderate disease will need to be followed up with u/s in 3 months. will likely require holter monitor on discharge. cardio on board 2. HTN- upper limit of normal. hold av node blockers. consider re-starting alternate agent if remains elevated 3. COPD- no sign of exacerbation. not on medications? confirm home meds 4. dvt ppx- EAM
--- NOTE | 2016-06-09 16:34 | CONSULT ---
[id number] patient for Cardiology. HISTORY OF PRESENT ILLNESS: Patient is a 61 year old male with a PMHx of HTN, COPD, obesity who presented after a syncopal episode that occurred yesterday night. Patient reports he was eating dinner and noticed he was having a hard time swallowing his food and then slumped back. Patient's stepdaughter witnessed the event and reports that the patient passed out for about 15-20 seconds. He had no body movements or signs of a seizure. Patient reports no episodes of dizziness, lightheadedness, chest pain, or diaphoresis prior to the syncopal episode, during the syncopal episode, or after the syncopal episode. Patient denies any previous syncopal episodes in the past. Patient does report starting a new anti-hypertensive medication, Bystolic, three days ago and is scheduled to return for a follow up on 06/28/2016 with his PCP. Otherwise, he denies fever, chills, nausea, vomiting, palpitations, shortness of breath, abdominal pain, headache, visual changes. EKG revealed secondary AV block with Mobitz I and a second EKG revealed 2:1 AV block and Mobitz II secondary AV block. However, patient is currently asymptomatic. PMHx: HTN, COPD, Obesity PSHx: None Social History: Smokin PPD for 50 years Alcohol:no Drugs: no Family History: Denies Allergies: None REVIEW OF SYSTEMS: CONSTITUTIONAL: Absent: fever, chills, diaphoresis, generalized weakness, malaise, loss of appetite, weight change HEENT: Absent: rhinorrhea, nasal congestion, throat pain, throat swelling, difficulty swallowing, mouth swelling, ear pain, eye pain, visual changes CARDIOVASCULAR: syncope Absent: chest pain, palpitations, irregular heart rate, lightheadedness, peripheral edema RESPIRATORY: Absent: cough, shortness of breath, dyspnea with exertion, orthopnea, wheezing, stridor, hemoptysis GASTROINTESTINAL: Absent: abdominal pain, abdominal distension, nausea, vomiting, diarrhea, constipation, melena, hematochezia GENITOURINARY: Absent: dysuria, frequency, urgency, hesitancy, hematuria, flank pain, genital pain MUSCULOSKELETAL: Absent: myalgia, arthralgia, joint swelling, back pain, neck pain SKIN: Absent: rash, itching, pallor HEMATOLOGIC/IMMUNOLOGIC: Absent: easy bleeding, easy bruising, lymphadenopathy, frequent infections ENDOCRINE: Absent: unexplained weight gain, unexplained weight loss, heat intolerance, cold intolerance NEUROLOGIC: Absent: headache, focal weakness or paresthesias, dizziness, unsteady gait, seizure, mental status changes, bladder or bowel incontinence PSYCHIATRIC: Absent: anxiety, depression, suicidal or homicidal ideation, hallucinations. PHYSICAL EXAMINATION Vital Signs - 24 hr 06/08/16 06/09/16 06/09/16 22:37 02:00 03:00 Temperature 98.5 F 98.5 F 98.4 F Pulse Rate 63 64 Pulse Rate [ 64 Apical] Respiratory 20 18 20 Rate Blood Pressure 156/79 148/78 Blood Pressure 178/69 [Right Arm] O2 Sat by Pulse 93 L 93 L Oximetry (%) 06/09/16 06/09/16 06/09/16 03:45 05:52 09:00 Temperature 98.4 F 98.1 F 98.2 F Pulse Rate 78 57 L 54 L Pulse Rate [ Apical] Respiratory 20 18 16 Rate Blood Pressure 148/78 158/70 148/70 Blood Pressure [Right Arm] O2 Sat by Pulse 93 L Oximetry (%) 06/09/16 06/09/16 11:00 14:40 Temperature 98 F Pulse Rate 65 Pulse Rate [ Apical] Respiratory 18 Rate Blood Pressure 151/77 Blood Pressure [Right Arm] O2 Sat by Pulse 94 L Oximetry (%) GENERAL: Awake, alert, and fully oriented, in no acute distress. EYES: Sclera anicteric NECK: Limited range of motion. No Carotid Bruits appreciated, no JVD LUNGS: Breath sounds equal, clear to auscultation bilaterally. No wheezes, and no crackles. No accessory muscle use. HEART: Regular rate and rhythm, normal S1 and S2 without murmur, rub or gallop. ABDOMEN: Soft, nontender, not distended. LOWER EXTREMITIES: No peripheral edema. NEUROLOGICAL: Normal speech. Laboratory Results - last 24 hr 06/09/16 06/09/16 06/09/16 01:00 05:35 05:35 WBC 9.6 RBC 5.39 Hgb 15.8 Hct 47.7 MCV 88.5 MCHC 33.0 RDW 14.2 Plt Count 156 D MPV 10.4 Neutrophils % 60.1 Lymphocytes % 27.4 D Monocytes % 9.7 Eosinophils % 2.1 Basophils % 0.7 Sodium 141 Potassium 4.1 Chloride 104 Carbon Dioxide 27 Anion Gap 10 BUN 17 Creatinine 1.0 Creat Clearance w eGFR > 60 Random Glucose 100 Calcium 8.5 Phosphorus 3.1 Magnesium 2.1 Total Bilirubin 0.7 D AST 18 ALT 27 Alkaline Phosphatase 72 Troponin I 0.02 0.02 Total Protein 6.9 Albumin 3.5 Triglycerides 132 Cholesterol 194 Total LDL Cholesterol 144 H HDL Cholesterol 41 06/09/16 06/09/16 05:35 06:15 WBC RBC Hgb Hct MCV MCHC RDW Plt Count MPV Neutrophils % Lymphocytes % Monocytes % Eosinophils % Basophils % Sodium Potassium Chloride Carbon Dioxide Anion Gap BUN Creatinine Creat Clearance w eGFR Random Glucose Calcium Phosphorus Magnesium Total Bilirubin AST ALT Alkaline Phosphatase Troponin I Cancelled Total Protein Albumin Triglycerides Cancelled Cholesterol Cancelled Total LDL Cholesterol Cancelled HDL Cholesterol Cancelled Active Medications Generic Name Dose Route Start Last Admin Trade Name Freq PRN Reason Stop Dose Admin Acetaminophen 650 mg 06/08/16 22:47 Tylenol - PO Q4H PRN FEVER OR PAIN Albuterol Sulfate 1 amp 06/08/16 22:47 Ventolin 0.083% Nebulizer Soln - NEB Q4H PRN SHORT OF BREATH/WHEEZING Albuterol/Ipratropium 1 amp 06/09/16 06:00 06/09/16 13:46 Duoneb - NEB 1 amp TIDR CRISSY Administration Heparin Sodium (Porcine) 5,000 unit 06/09/16 02:00 06/09/16 09:35 Heparin - SQ 5,000 unit Q8H-IV CRISSY Administration Hydrochlorothiazide 12.5 mg 06/09/16 10:00 06/09/16 09:35 Hctz - PO 12.5 mg DAILY CRISSY Administration Chest X-ray: No acute pathology Cat Scan: No acute pathology Carotid Doppler: 60-79% LICA and occluded right vertebral artery Echo: Limited study due to body habitus. No regional wall motion abnormalities noted. Mild mitral regurgitation and aortic sclerosis. No pericardial effusion. ASSESSMENT/PLAN: Patient is a 61 year old male with a PMHx of COPD and HTN (recently started on bystolic) who presented for syncopal episode that lasted approximately 15-20 seconds. EKG revealed Mobitz I heart block and second EKG revealed 2:1 AV block and Mobitz II secondary AV block. Cardiology consultation was called for further evaluation. Syncope -Possibly secondary to AV block -Discontinue Bystolic -ECHO revealed mild mitral regurgitation and aortic stenosis -Consider nuclear treadmill stress testing to rule out CAD -EP study for determination of permanent pacemaker. Currently asymptomatic -Continue Amlodipine 5mg daily -Consider ASA -Lyme titers ordered -Continue Telemetry monitoring HTN -Discontinue Bystolic -Continue Amlodipine 5mg daily -Continue to monitor BP COPD -Currently in no acute exacerbation -Continue Albuterol 1 meagan Q4H PRN -Continue Duoneb TIDR Dispo: We will continue to follow the patient. Thank you for this consultative opportunity. Visit type - Emergency Visit Emergency Visit: Yes ED Registration Date: 06/08/16 Care time: The patient presented to the Emergency Department on the above date and was hospitalized for further evaluation of their emergent condition. - New Patient This patient is new to me today: Yes Date on this admission: 06/08/16 - Critical Care Critical Care patient: No
[2016-06-10] MEDS: HEPARIN NA (PORCINE) 5,000 UNITS/ML 1ML VIAL SQ SCH ×4 (04:34→17:28)
[2016-06-10] MEDS: ALBUTEROL SO4 2.5/IPRATROPIUM 0.5 INH SOL 3 ML VIAL.NEB. NEB SCH ×3 (06:45→22:12)
[2016-06-10] MEDS: amLODIPine BESYLATE 5 MG TABLET (FP) PO SCH ×2 (08:34→09:11)
[2016-06-10] MEDS ORDERED: DOBUTAMINE HCL 100,000 MCG in DEXTROSE 5%-WATER - 92 ML IVPB ONE (11:45)
--- NOTE | 2016-06-10 11:53 | PN ---
Progress Note (short form) - Note Progress Note: Chief Complaint: Events noted, notes reviewed, denies any dizziness or lightheadedness, no recurrent syncope, no recurrent arrhythmia noted History of Present Illness: seen and examined on telemetry. Events noted, notes reviewed, denies any dizziness or lightheadedness, no recurrent syncope, no recurrent arrhythmia noted Echocardiography performed 06/09/2016 was technically suboptimal revealing overall preserved left ventricular systolic function, mitral annular calcification, aortic valve leaflet sclerosis and mild mitral valve regurgitation To proceed with a MPI study today Medications: Current Medications Acetaminophen (Tylenol -) 650 mg PO Q4H PRN PRN Reason: FEVER OR PAIN Albuterol Sulfate (Ventolin 0.083% Nebulizer Soln -) 1 amp NEB Q4H PRN PRN Reason: SHORT OF BREATH/WHEEZING Albuterol/Ipratropium (Duoneb -) 1 amp NEB TIDR [facility] Last Admin: 06/10/16 06:45 Dose: 1 amp Amlodipine Besylate (Norvasc -) 5 mg PO DAILY [facility] Last Admin: 06/10/16 09:11 Dose: Not Given Heparin Sodium (Porcine) (Heparin -) 5,000 unit SQ Q8H-IV [facility] Last Admin: 06/10/16 09:11 Dose: Not Given Review of Systems - Review of Systems Constitutional: denies: Chills or Fever Cardiovascular: As noted above Respiratory: denies: Cough or Sputum Production Gastrointestinal: denies: Nausea, Vomiting, Diarrhea, Constipation or Abdominal Pain Genitourinary: denies: Dysuria Neurological: denies: Dizziness or headaches Vital Signs: Last Vital Signs Temp Pulse Resp BP Pulse Ox 98.6 F 68 20 143/72 95 06/10/16 08:55 06/10/16 08:55 06/10/16 08:55 06/10/16 08:55 06/10/16 08:55 Neck: Supple Negative JVD no Bruit Appreciated Respiratory: Clear to Auscultation and Percussion Bilaterally Cardiovascular: S1 and S2 Regular Rate and Rhythm Gastrointestinal: Soft Benign Normal Bowel Sounds Ext: No Edema Labs: CBC, BMP 06/09/16 05:35 06/09/16 05:35 Assessment/Plan ASSESSMENT: 1. Syncope, clinical presentation is suggestive of neuro-cardiogenic syncope unlikely vaso-vagal but advanced AV block to be excluded (Mobitz I and Mobitz II AV block were noted obstructive sleep apnea to be considered as a differential) 2. HTN 3. Carotid artery disease moderate plus in severity, asymptomatic 4. COPD/EDIE To be considered as a differential 5. Morbid obesity PLAN: 1. Continue Norvasc pending completion of evaluation 2. Initiate Aspirin therapy 3. Myocardial perfusion imaging study as planned 4. Recommend sleep studies for evaluation of obstructive sleep apnea as a culprit for the above-noted AV block 5. Patient may require additional evaluation including outpatient tilt table testing +/- electrophysiology studies for further evaluation of the above-noted clinical presentation 6. Further evaluation of the above-noted carotid artery disease would include neck CTA which can be performed on outpatient basis for stroke prevention evaluation Bobo Perry MD
--- NOTE | 2016-06-10 13:09 | PN ---
<DriscollGerry ricci - Last Filed: 06/10/16 14:50> Physical Exam: ATTENDING PHYSICIAN STATEMENT I saw and evaluated the patient. I reviewed the resident's note and discussed the case with the resident. I agree with the resident's findings and plan as documented. SUBJECTIVE: seen and evaluated at the bedside OBJECTIVE: no distress ASSESSMENT AND PLAN: 61 yo M with significant PMHx of COPD and HTN admitted for syncope Syncope -found to have second degree heart block by cardio attending -stopped nebivolol which pt was prescribed as an outpatient -follow up stress test Carotid stenosis -found to have possible occlusion of left vertebral artery on sono -will discuss case with vascular surgeon before ordering CTA to see if Vascular' s preference is for outpatient workup HTN -stopped nebivolol which pt was prescribed as an outpatient -started on amlodipine <Ozzy Loja - Last Filed: 06/10/16 17:06> Physical Exam: SUBJECTIVE: Patient seen and examined at bedside. Pt has no complaints. Feels well and denies any N/V/F/C, CP, palpitations, SOB. Had stress test today. OBJECTIVE: Vital Signs Temperature 98.7 F 06/10/16 15:00 Pulse Rate 86 06/10/16 15:00 Respiratory Rate 20 06/10/16 15:00 Blood Pressure 155/77 06/10/16 15:00 O2 Sat by Pulse Oximetry (%) 95 06/10/16 08:55 GENERAL: The patient is awake, alert, and fully oriented, in no acute distress. HEAD: Normal with no signs of trauma. EYES: PERRL, extraocular movements intact, sclera anicteric, conjunctiva clear. No ptosis. ENT: Ears normal, nares patent, moist mucous membranes. NECK: Trachea midline, Does not have full ROM, cannot turn head to sides ( chronic issue as per pt). LUNGS: Breath sounds equal, clear to auscultation bilaterally, no wheezes, no crackles, no accessory muscle use. HEART: Bradycardic, S1, S2 without murmur, rub or gallop. ABDOMEN: Soft, obese, nontender, nondistended, normoactive bowel sounds, no guarding, no rebound, no hepatosplenomegaly, no masses. EXTREMITIES: 2+ pulses, warm, well-perfused, no edema. NEUROLOGICAL:Normal speech, gait not observed. PSYCH: Normal mood, normal affect. SKIN: Warm, dry, normal turgor, no rashes or lesions noted Laboratory Results - last 24 hr 06/10/16 05:48 TSH 1.67 Active Medications Generic Name Dose Route Start Last Admin Trade Name Freq PRN Reason Stop Dose Admin Acetaminophen 650 mg 06/08/16 22:47 Tylenol - PO Q4H PRN FEVER OR PAIN Albuterol Sulfate 1 amp 06/08/16 22:47 Ventolin 0.083% Nebulizer Soln - NEB Q4H PRN SHORT OF BREATH/WHEEZING Albuterol/Ipratropium 1 amp 06/09/16 06:00 06/10/16 06:45 Duoneb - NEB 1 amp TIDR CRISSY Administration Amlodipine Besylate 5 mg 06/10/16 10:00 06/10/16 09:11 Norvasc - PO Not Given DAILY CRISSY Heparin Sodium (Porcine) 5,000 unit 06/09/16 02:00 06/10/16 09:11 Heparin - SQ Not Given Q8H-IV CRISSY Dobutamine HCl 100,000 mcg/ 100 mls @ 42.62 mls/hr 06/10/16 11:45 06/10/16 11: 20 Dextrose IVPB 06/10/16 14:05 42.62 mls/hr ONCE ONE Administration Protocol 5 MCG/KG/MIN ASSESSMENT/PLAN: 61 y/o M w/ PMH of COPD, recently diagnosed HTN (started on bystolic 3 days ago ) presented to ER after LOC for approximately 20 seconds. EKG showed Mobitz type 1 heart block. In obs for syncopal event. -Syncope secondary to heart block worsened by medication/beta helen vs vascular disease -EKG shows Mobitz type 1 heart block; possibly has Mobitz type 2 at times. -Head CT - negative for acute pathology -Carotid Doppler Study - 60-79% stenosis at left carotid bifurcation. Possible occlusion of L vertebral artery. CTA or MRA recommended by radiology. -Echo: LV nl size and function; no regional wall abnormalities noted; mild MR ; mild aortic sclerosis; no pericardial effusion -f/u lyme -TSH 1.67 -Cardiology consulted -Holter shows mainly mobitz type 1 and 2:1 AV block at 4:47 am. -Stress Test:moderate zone of inferior and inferolateral fixed defect from base to apex likely represents diaphragmatic attenuation. Cannot r/o small inferobasal ischemia. Zone of small anterobasal reversible defect suggestive of mild ischemia. LV EF 67%. -Mobitz type 1 heart block -as seen on EKG -cardiology consulted -f/u lyme -TSH 1.67 -worsening arrythmia secondary to EDIE -portable sleep study for tonight -Pulm consulted -HTN -c/w norvasc 5 mg qd, better controlled on norvasc -COPD -c/w duonebs TID, alb neb q4h PRN -FEN -Sodium controlled diet -DVT ppx -Heparin TID -Dispo -Most likely to be discharged tomorrow. Portable EDIE tonight. Problem List - Problems (1) COPD (chronic obstructive pulmonary disease) Code(s): J44.9 - CHRONIC OBSTRUCTIVE PULMONARY DISEASE, UNSPECIFIED Qualifiers : COPD type: unspecified COPD Qualified Code(s): J44.9 - Chronic obstructive pulmonary disease, unspecified (2) DVT prophylaxis Code(s): [id number] - (3) HTN (hypertension) Code(s): I10 - ESSENTIAL (PRIMARY) HYPERTENSION Qualifiers: Hypertension type: essential hypertension Qualified Code(s): I10 - Essential (primary) hypertension (4) Second degree AV block Code(s): I44.1 - ATRIOVENTRICULAR BLOCK, SECOND DEGREE (5) Syncope Code(s): R55 - SYNCOPE AND COLLAPSE Qualifiers: Syncope type: unspecified Qualified Code(s): R55 - Syncope and collapse (6) EDIE (obstructive sleep apnea) Code(s): G47.33 - OBSTRUCTIVE SLEEP APNEA (ADULT) (PEDIATRIC) Visit type - Emergency Visit Emergency Visit: Yes ED Registration Date: 06/08/16 Care time: The patient presented to the Emergency Department on the above date and was hospitalized for further evaluation of their emergent condition. - New Patient This patient is new to me today: No - Critical Care Critical Care patient: No
--- NOTE | 2016-06-10 13:27 | EKG ---
Test Reason : Blood Pressure : / mmHG Vent. Rate : 046 BPM Atrial Rate : 046 BPM P-R Int : 000 ms QRS Dur : 094 ms QT Int : 436 ms P-R-T Axes : 032 009 045 degrees QTc Int : 381 ms SINUS BRADYCARDIA WITH 1ST DEGREE A-V BLOCK AND WITH 2ND DEGREE A-V BLOCK (MOBITZ I) CANNOT RULE OUT INFERIOR INFARCT , AGE UNDETERMINED ABNORMAL ECG WHEN COMPARED WITH ECG OF 08-JUN-2016 19:29, LIKELY NO SIGNIFICANT CHANGES CLINICAL CORRELATION IS RECOMMENDED Confirmed by KARAN CONRAD MD ([id number]) on 06/10/2016 1:26:36 PM Referred By: Shey STAUFFER Confirmed By:KARAN CONRAD MD
--- NOTE | 2016-06-10 13:33 | EKG ---
Test Reason : Blood Pressure : / mmHG Vent. Rate : 056 BPM Atrial Rate : 063 BPM P-R Int : 000 ms QRS Dur : 086 ms QT Int : 426 ms P-R-T Axes : 051 050 058 degrees QTc Int : 411 ms SINUS RHYTHM WITH 2ND DEGREE A-V BLOCK (MOBITZ I) ABNORMAL ECG NO PREVIOUS ECGS AVAILABLE Confirmed by KARAN CONRAD MD ([id number]) on 06/10/2016 1:32:42 PM Referred By: Confirmed By:KARAN CONRAD MD
--- NOTE | 2016-06-10 14:34 | HOL ---
Hook-up date: 2016-06-09 13:45:00 Duration: 19:53:00 Test Indications: ADVANCED AV BLOCK Medications: 01613 QRS complexes 179 Ventricular ectopics which represent <1 % of total QRS comp. * Supraventricular ectopics which represent % of total QRS comp. * Paced QRS complexs which represent % of total QRS comp. * % of Time Classified as Noise VENTRICULAR ECTOPY 161 Isolated 5 Bigeminal Cycles 7 Couplets 1 Runs 4 Beats in Runs 4 Beats LONGEST at 66 BPM at 14:06:07 2016-06-09 4 Beats FASTEST at 66 BPM at 14:06:07 2016-06-09 SUPRAVENTRICULAR ECTOPY * Isolated * Couplets * Runs * Beats in Runs * Beats LONGEST at * BPM at :: -- * Beats FASTEST at * BPM at :: -- HEART RATES 31 MIN at 06:11:22 2016-06-10 57 AVG 77 MAX at 14:48:44 2016-06-09 LONGEST RR 2.168 secs at 04:43:53 2016-06-10 SCANNED BY PETERSON TINSLEY 06/10/2016 NO DIARY SUBMITTED HOLTER MONITOR TAKEN OFF EARLY DUE TO PATIENT TESTING 1. BASELINE RHYTHM APPEARS TO BE SINUS RHYTHM WITH 1ST DEGREE AV BLOCK AND 2ND DEGREE AV BLOCK MOSTLY APPEARS MOBITZ 1 ([place]). THERE MAY BE 2:1 AV BLOCK AT 4:47 AM. 2. OCCASIONAL VENTRICULAR ECTOPIES - PVCS 3. NO EVIDENCE OF ATRIAL ECTOPIES 4. NO SIGNIFICANT ST-T WAVE VARIATIONS Confirmed by KARAN CONRAD MD ([id number]) on 06/10/2016 2:33:33 PM Referred By: Overread By: KARAN CONRAD MD
[2016-06-11] MEDS: HEPARIN NA (PORCINE) 5,000 UNITS/ML 1ML VIAL SQ SCH ×2 (03:19→10:29)
[2016-06-11] MEDS: ALBUTEROL SO4 2.5/IPRATROPIUM 0.5 INH SOL 3 ML VIAL.NEB. NEB SCH ×2 (07:12→14:59)
[2016-06-11] MEDS: amLODIPine BESYLATE 5 MG TABLET (FP) PO SCH (10:29)
--- NOTE | 2016-06-11 11:19 | PN ---
Progress Note, Physician History of Present Illness: No further near or true syncope. Tele shows episodes of Wenckebach block overnight. - Current Medication List Current Medications: Active Medications Acetaminophen (Tylenol -) 650 mg PO Q4H PRN PRN Reason: FEVER OR PAIN Albuterol Sulfate (Ventolin 0.083% Nebulizer Soln -) 1 amp NEB Q4H PRN PRN Reason: SHORT OF BREATH/WHEEZING Albuterol/Ipratropium (Duoneb -) 1 amp NEB TIDR [facility] Last Admin: 06/11/16 07:12 Dose: 1 amp Amlodipine Besylate (Norvasc -) 5 mg PO DAILY [facility] Last Admin: 06/11/16 10:29 Dose: 5 mg Heparin Sodium (Porcine) (Heparin -) 5,000 unit SQ Q8H-IV [facility] Last Admin: 06/11/16 10:29 Dose: 5,000 unit - Objective Vital Signs: Vital Signs Temperature 96.5 F L 06/11/16 10:57 Pulse Rate 70 06/11/16 10:57 Respiratory Rate 28 H 06/11/16 10:57 Blood Pressure 124/74 06/11/16 10:57 O2 Sat by Pulse Oximetry (%) 95 06/11/16 09:58 Constitutional: Yes: No Distress, Calm Neck: Yes: Supple Cardiovascular: Yes: Regular Rate and Rhythm Respiratory: Yes: Regular, CTA Bilaterally Gastrointestinal: Yes: Normal Bowel Sounds, Soft, Abdomen, Obese Edema: No Labs: CBC, BMP 06/09/16 05:35 06/09/16 05:35 INR, PTT INR 1.04 (0.82-1.09) 06/08/16 19:56 - ....Imaging EKG: Report Reviewed (Tele: NSR, occ Wenckebach block overnight) Problem List - Problems (1) HTN (hypertension) Code(s): I10 - ESSENTIAL (PRIMARY) HYPERTENSION Qualifiers: Hypertension type: essential hypertension Qualified Code(s): I10 - Essential (primary) hypertension (2) EDIE (obstructive sleep apnea) Code(s): G47.33 - OBSTRUCTIVE SLEEP APNEA (ADULT) (PEDIATRIC) (3) Second degree AV block Code(s): I44.1 - ATRIOVENTRICULAR BLOCK, SECOND DEGREE (4) Syncope Code(s): R55 - SYNCOPE AND COLLAPSE Qualifiers: Syncope type: vasovagal syncope Qualified Code(s): R55 - Syncope and collapse Assessment/Plan Holter: SR occ Wenchebach and 1st deg block Echocardiography performed 06/09/2016 was technically suboptimal revealing overall preserved left ventricular systolic function, mitral annular calcification, aortic valve leaflet sclerosis and mild mitral valve regurgitation MPI: Small anterobasal mild uschemia, LVEF 67% 1. Syncope, clinical presentation is suggestive of neuro-cardiogenic syncope with suprahisian AV block 2. HTN 3. Carotid artery disease moderate plus in severity, asymptomatic 4. COPD/EDIE To be considered as a differential 5. Morbid obesity likely OSAS PLAN: 1. Continue Norvasc 5 qd, ASA 81 qd 2. Recommend sleep studies for evaluation of obstructive sleep apnea as a culprit for the above-noted AV block once he acquired insurance 3. D/c planning
--- NOTE | 2016-06-11 12:32 | PN ---
Progress Note (short form) - Note Progress Note: PULMONARY CONSULTATION DICTATED 06/11/16 IMP SYNCOPE NEURO-CARDIOGENIC AV BLOCK OSAS COPD HTN SMOKER PLAN SLEEP STUDIES OUTPATIENT,CPAP TITRATION ONCE INSURANCE ISSUES RESOLVED INHALED BRONCHODILATORS SMOKING CESSATION LOW DOSE CHEST CT OUTPATIENT FOR LUNG CANCER SCREENING DR FUNEZ
--- NOTE | 2016-06-11 13:29 | PN ---
Teaching Attending Note Name of Resident: Ozzy Loja ATTENDING PHYSICIAN STATEMENT I saw and evaluated the patient. I reviewed the resident's note and discussed the case with the resident. I agree with the resident's findings and plan as documented. 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
--- NOTE | 2016-06-11 14:00 | DS ---
Physical Exam: SUBJECTIVE: Patient seen and examined at bedside. Pt offers no complaints. Slept well, no LOC, no feeling faint, denies lightheadedness, dizziness, CP, SOB , palpitations. OBJECTIVE: Vital Signs Temperature 97.7 F 06/11/16 14:48 Pulse Rate 73 06/11/16 14:48 Respiratory Rate 20 06/11/16 14:48 Blood Pressure 139/69 06/11/16 14:48 O2 Sat by Pulse Oximetry (%) 95 06/11/16 09:58 PHYSICAL EXAM GENERAL: The patient is awake, alert, and fully oriented, in no acute distress. HEAD: Normal with no signs of trauma. EYES: PERRL, extraocular movements intact, sclera anicteric, conjunctiva clear. No ptosis. ENT: Ears normal, nares patent, moist mucous membranes. NECK: Trachea midline, Does not have full ROM, cannot turn head to sides ( chronic issue as per pt). LUNGS: Breath sounds equal, clear to auscultation bilaterally, no wheezes, no crackles, no accessory muscle use. HEART: Bradycardic, S1, S2 without murmur, rub or gallop. ABDOMEN: Soft, obese, nontender, nondistended, normoactive bowel sounds, no guarding, no rebound, no hepatosplenomegaly, no masses. EXTREMITIES: 2+ pulses, warm, well-perfused, no edema. NEUROLOGICAL:Normal speech, gait not observed. PSYCH: Normal mood, normal affect. SKIN: Warm, dry, normal turgor, no rashes or lesions noted LABS HOSPITAL COURSE: Date of Admission:06/08/16 Date of Discharge: 06/11/16 61 y/o M w/ PMH of COPD, recently diagnosed HTN (started on bystolic 3 days ago ) presented to ER after LOC for approximately 20 seconds. EKG showed Mobitz type [address] negative. Bystolic was stopped. Holter monitor showed mainly mobitz type 1 and 2:1 AV block once. Echo showed: LV nl size and function; no regional wall abnormalities noted; mild MR; mild aortic sclerosis; no pericardial effusion. Carotid Doppler Study - 60-79% stenosis at left carotid bifurcation. Possible occlusion of L vertebral artery. Spoke with Dr. Yany Loja who states no workup indicated at this time. CTA or MRA recommended by radiology. TSH 1.67; Lyme negative (western blot still pending). Stress Test: moderate zone of inferior and inferolateral fixed defect from base to apex likely represents diaphragmatic attenuation. Cannot r/o small inferobasal ischemia. Zone of small anterobasal reversible defect suggestive of mild ischemia. LV EF 67%. Pt seen by Cardio who recommended pt get EDIE work up and portable sleep study was done overnight at hospital. Seen by pulm who recommended pt get full EDIE sleep study done as outpatient. Pt most likely had syncope secondary to recent bystolic use. Pt started on norvasc 5 mg qd for blood pressure control instead. Pt to f/u with PCP in 1 week (assigned to Dr. Loyd), Dr. Patricia in 1-2 weeks, and to call Respiratory department ext. [phone] to make sleep study appointment with Dr. Floyd. At this time pt is not insured and will likely have to wait to make appointments as he and his just applied for medicare during this admission. Minutes to complete discharge: 38 Discharge Summary Reason For Visit: SYNCOPE,SECOND DEGREE ATRIOVENTRICULAR BLOCK Current Active Problems DVT prophylaxis (Acute) Second degree AV block (Acute) Syncope (Acute) COPD (chronic obstructive pulmonary disease) (Chronic) HTN (hypertension) (Chronic) EDIE (obstructive sleep apnea) (Chronic) Condition: Stable - Instructions Diet, Activity, Other Instructions: Please follow up with Dr. Loyd as your primary care physician if you do not have one. You need to discontinue taking the bystolic. You will be prescribed a new blood pressure medication - Norvasc 5mg to take once daily. This prescription has been sent to [facility]. You will need to follow up with cardiology, Dr. Patricia, in 1-2 weeks as well for your heart block. It is also extremely important to see cardiology to assess whether you will need further intervention from your positive stress test results. For a full sleep study please call Respiratory Department [phone] TO Schedule appointment for Dr. Floyd. If you lose consciousness again please come back to ER immediately. Referrals: Hunter Loyd MD [Staff Physician] - Kirill Patricia MD [Staff Physician] - Geoffrey Floyd MD [Staff Physician] - Disposition: HOME - Home Medications Comprehensive Discharge Medication List: Ambulatory Orders Amlodipine Besylate [Norvasc -] 5 mg PO DAILY #30 tablet 06/11/16 Problem List - Problems (1) COPD (chronic obstructive pulmonary disease) Code(s): J44.9 - CHRONIC OBSTRUCTIVE PULMONARY DISEASE, UNSPECIFIED Qualifiers : COPD type: unspecified COPD Qualified Code(s): J44.9 - Chronic obstructive pulmonary disease, unspecified (2) DVT prophylaxis Code(s): [id number] - (3) HTN (hypertension) Code(s): I10 - ESSENTIAL (PRIMARY) HYPERTENSION Qualifiers: Hypertension type: essential hypertension Qualified Code(s): I10 - Essential (primary) hypertension (4) Second degree AV block Code(s): I44.1 - ATRIOVENTRICULAR BLOCK, SECOND DEGREE (5) Syncope Code(s): R55 - SYNCOPE AND COLLAPSE Qualifiers: Syncope type: vasovagal syncope Qualified Code(s): R55 - Syncope and collapse (6) EDIE (obstructive sleep apnea) Code(s): G47.33 - OBSTRUCTIVE SLEEP APNEA (ADULT) (PEDIATRIC) This patient is new to me today: Yes Date on this admission: 06/11/16 Emergency Visit: No Critical Care patient: No - Discharge Referral Referred to [facility] No
[2016-06-11 14:50] VITALS: BP 139/69; PULSE 73; TEMP 97.7
--- NOTE | 2016-06-11 15:53 | CONS ---
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 The patient states that he was eating when he had this episode when he lost consciousness. Denies any chest pain, nausea, vomiting, diaphoretic or palpitations prior to this. The patient was brought to the emergency room with above. In the ER, he is noted to have a second-degree type block. He was admitted to telemetry for further management. He was evaluated by Dr. Lee for cardiology consultation. The patient underwent a stress test, which was normal limits. Dr. Lee felt the patient had neurocardiogenic syncope most likely exacerbated by possible beta blockers. Of note, he was also noted to have evidence of heart block at nighttime, occasional Wenckebach and first-degree block at night, predominantly when sleeping. He underwent a sleep screen on June 11, which revealed an AHI of 46. The patient denies any shortness of breath, dyspnea on exertion, PND or orthopnea. He denies any chronic cough or hemoptysis, denies any palpitations. He is unsure whether or not he snores. Denies excessive daytime sleepiness. PAST MEDICAL HISTORY: Includes hypertension, likely obstructive sleep apnea, second degree AV block, syncope. REVIEW OF SYSTEMS: No orthopnea. No PND. Positive recent syncopal episode. No chest pain. No palpitations. No GI complaints. PHYSICAL EXAMINATION: General: He is an obese male but awake, alert in no acute distress. Vital Signs: He is afebrile. Blood pressure is 124/74, respiratory rate 18. HEENT: Normocephalic, atraumatic. Neck: Supple. Heart: Regular S1, S2. Chest: Clear. Abdomen: Soft, bowel sounds. Extremities: No sign of edema. LABORATORY DATA: WBC is 9.6, hemoglobin 15.8, hematocrit 47.7, platelet count of 156,000. D-dimer is less than 200. BUN and electrolytes essentially within normal limits. IMAGING: Chest x-ray: No infiltrates and no effusions. Head CT: Negative. Sleep screen: Actually bad with AHI of 46.1. IMPRESSION: 1. Status post syncope, most likely neurosyncope. 2. Obstructive sleep apnea syndrome. 3. Likely chronic obstructive pulmonary disease. 4. History of hypertension. PLAN: 1. The patient will require sleep studies as well as CPAP titration as an outpatient once he obtains insurance. 2. Continue cardiac workup as per Cardiology. 3. Weight reduction and smoking cessation advised. JACKELYN FUNEZ M.D. VEENA/[id number]
== END 2016-06-11 15:49 | disposition home or self-care (01) ==
LOC: JER 19:21 → JERBED 21:50 → J4W 06-09
PROVIDERS: ADMIT Internal Medicine; ATTEND Internal Medicine
DX: I44.1 Atrioventricular block, second degree (principal); R55 Syncope and collapse; I10 Essential (primary) hypertension; J44.9 Chronic obstructive pulmonary disease, unspecified; Z87.891 Personal history of nicotine dependence; Z68.41 Body mass index [BMI] 40.0-44.9, adult; E66.01 Morbid (severe) obesity due to excess calories; G47.33 Obstructive sleep apnea (adult) (pediatric); I65.22 Occlusion and stenosis of left carotid artery
CPT/HCPCS: 36415; 70450-TC; 71020-TC; 78452-TC; 80053; 80061; 81003; 81015; 82550; 82553; 83721; 83735; 83880; 84100; 84443; 84484; 85025; 85379; 85610; 86618; 93005; 93010; 93017; 93225; 93226; 93306-TC; 93880-TC; 94640; 99285-25; A9502; G0378; J1644; Q2037